=== PATIENT | female | born 1950 | race Caucasian/White ===

== ENCOUNTER 2024-11-30 18:55 | Emergency (ER) | payer OTHER, SELFPAY ==
--- OUTSIDE RECORDS SUMMARY | 2001-08-18 03:45 | XMS_ITS | Continuity of Care Document ---
Author Organization Formerly [facility] Address [address] [place] [address] Phone Care Team Providers Care Ritual Circumciser Name Role Phone Marvin Dong Unavailable Unavailable Advance Directives Directive Yes / No Effective Date File Name No Information Encounters Encounter Description Practice Location Reason(s) For Visit Diagnoses Date Provider Providers Copied on Encounter [facility], [address], [place], [place], [id number], [place] [phone] [facility] No Information 2 Jeromesy Edward. [address] , [address], [place], [address], [place]. tel:[phone] Family History Family Member Type Diagnosis Age At Onset No Information Payers Payer name Insurance type Covered republican ID Authoriza tion(s) No Information Social History Type Description Quantity Date Captured Comments Sex Female Smoking Status No Information Chief Complaint And Reason For Visit No Information Reason For Referral Reason For Referral No Information History Of Present Illness Encounter Date Complaint History Of Prese nt Illness No Information Functional Status Date Functional Assessmen t No Information Instructions Date Instruction Additional Infor mation No Information Assessments Type Assessment Date No Information Patient Care Teams Name Effective Dates (start - stop) Status Members No Information
--- OUTSIDE RECORDS SUMMARY | 2001-08-18 03:45 | XMS_ITS | Continuity of Care Document ---
Author Organization [facility] Address [address] [place] [address] Phone Care Team Providers Care School Speech Therapist Name Role Phone Marvin Dong Unavailable Unavailable Advance Directives Directive Yes / No Effective Date File Name No Information Encounters Encounter Description Practice Location Reason(s) For Visit Diagnoses Date Provider Providers Copied on Encounter [facility], [address], [place], [place], [id number], [place] tel:[phone] [facility] No Information 2 Jeromesy Edward. [address] , [address], [place], [address], [place]. tel:[phone] Family History Family Member Type Diagnosis Age At Onset No Information Payers Payer name Insurance type Covered democrat ID Authoriza tion(s) No Information Social History [...]
--- NOTE | ~2024-11-30 | XR_ITS ---
EXAMINATION: XR chest 1V DATE: 11/30/2024 20:30 INDICATION: Syncope TECHNIQUE: frontal view of the chest was obtained. COMPARISON: None FINDINGS: The lungs are clear with no focal airspace opacities, pulmonary edema, pleural effusion or pneumothorax. The cardiomediastinal silhouette is normal. Moderate thoracic spondylosis with bridging osteophytes at multiple levels consistent with diffuse idiopathic skeletal hyperostosis (DISH). IMPRESSION: 1. No acute cardiopulmonary disease. Reviewed, dictated and finalized at location A.
--- NOTE | ~2024-11-30 | CT_ITS ---
EXAMINATION: CT brain wo con DATE: 11/30/2024 20:26 INDICATION: Syncope. Headache. TECHNIQUE: Computed tomography (CT) of the head was performed without intravenous contrast. Sagittal and coronal reconstructions were performed. The mA was adjusted according to patient size. Iterative reconstruction technique was employed. The dose-length product was 605.33 mGy-cm. COMPARISON: None FINDINGS: No acute intracranial hemorrhage, acute infarction or abnormal extra axial fluid collection. A couple small old lacunar infarcts at the right basal ganglia. There is mild scattered white matter hypoattenuation consistent with chronic small vessel ischemic disease. Symmetric prominence of the sulci and subarachnoid spaces overlying the convexities consistent with mild age- appropriate diffuse cerebral volume loss. Ventricles are normal and symmetric. No mass/mass effect. There are couple surgical clips in the periventricular right temporal scalp. The orbits, paranasal sinuses and mastoid air cells are normal. Intracranial calcified cerebral atherosclerosis is noted. IMPRESSION: 1. A couple old lacunar infarcts at the right basal ganglia. No acute intracranial process. Reviewed, dictated and finalized at location A. IMPRESSION: 1. A couple old lacunar infarcts at the right basal ganglia. No acute intracran ial process.
[2024-11-30 18:57] VITALS: BP 152/76; PULSE 93; RESP 16; TEMP 36.6; O2SAT 97
--- OUTSIDE RECORDS SUMMARY | 2024-11-30 18:58 | XMS_ITS | Clinical Summary ---
Author Organization [facility] Address [address] [place] [id number] Care Team Providers Care Sand Cutter Operator Name Role Phone Unavailable Primary Care Provider Unavailabl e Social History Tobacco Use Types Packs/Day Years Used Date Smoking Tobacco: Never Assessed Comments Unknown Sex and Gender Information Value Date Recorded Sex Assigned at Not on file Legal Sex Female 7:28 PM CDT Gender Identity Not on file Sexual Orientation Not on file Plan of Treatment Health Maintenance Due Date Last Done Comments Colorectal Cancer Screening Colonoscopy (10 Years) 1950 Hepatitis C 1969 DTaP, Tdap and Td Vaccines ( 1 - Tdap) 1970 Mammogram Screening 1991 Pneumococcal Vaccine: 50+ Ye ars (1 of 1 - PCV) 2001 Zoster Vaccines (1 of 2) 2001 Dexa Scan (General) 2016 COVID-19 Vaccine ( - 2023-2 5 season) 2023 RSV Immunization or 60+ Years (1 - 1-dose 75+ series) 2026 Meningococcal B Vaccine Aged Out No l onger eligible based on patient's age to complete this topic Meningococcal Vaccine Aged Out No carolynn bess eligible based on patient's age to complete this topic RSV Immunizations Under 20 Months Aged Out No longer eligible based on patient's age to complete this topic
--- OUTSIDE RECORDS SUMMARY | 2024-11-30 18:58 | XMS_ITS | Clinical Summary ---
Author Organization [facility] Address [address] [place] [address] Phone Care Team Providers Care Hall Manager Name Role Phone Alisa Jensen BASEBALL GLOVE STUFFER Unavailable [phone] Lis Garcia MD Unavailable [phone] Italia Pierce MD Primary Care Provide r Yon Herrera DO Unavailable [phone] Allergies Active Allergy Reactions Criticality Noted Date Comments Sulfa (Sulfonamide Antibiotics) Other (See comments) Low Unsure of reaction- Sulfamethoxazole Other (See comments) Low Unsure of reaction- Sulfanilamide Other (See comments) Low Unsure of reaction- Medications fluticasone (FLONASE) 50 mcg/actuation nasal sprayIndications: please dispense 90 day supply Administer 2 sprays into each nostril daily. 48 g 017 Active fluticasone propion-salmetero L (ADVAIR DISKUS) 250-50 mcg/dose diskus inhaler Inhale 1 puff 2 (two) times a day 020 Active Spiriva Respimat 1.25 mcg/actuation inhaler Inhale 2 puffs nightly 021 Active ivermectin 1 % creamIndications: Rosacea Apply 1 Application topically 2 (two) times a day 45 g 024 Active levothyroxine (SYNTHROID) 75 mcg tabletIndications :Acquired hypothyroidism Take 1 tablet (75 mcg total) by mouth daily 90 tablet 3 024 Active vitamin E 400 unit capsule Take 1.125 capsules (450 Units total) by mouth daily Active vitamin B complex capsule Take 1 capsule by mouth daily Active biotin 10,000 mcg capsule Take 1 capsule (10,000 mcg total) by mouth daily Active UNABLE TO FIND Take 1 each by mouth daily Med Name: immune Health supplements- daily Active calcium carbonate (OS-CHIKI) 1,250 mg (500 mg elemental) tablet Take 1 tablet (1,250 mg total) by mouth daily with breakfast Active estradioL (ESTRACE) 0.01 % (0.1 mg/gram) vaginal cream Apply pea size amount as directed by physician nightly to vagina on Thursday// Thursday 42.5 g 1 025 2024 Active losartan (COZAAR) 25 mg tabletIndications :Primary hypertension Take 1 tablet (25 mg total) by mouth daily 90 tablet 3 025 2025 Active topiramate (TOPAMAX) 50 mg tabletIndications :Chronic migraine without aura without status migrainosus, not intractable Take half tablet (25 mg) po twice a day for one week, then one tablet po twice a day 60 tablet 3 Active rizatriptan MEDICAL BILLING COORDINATOR (MAXALT-MEDICAL BILLING COORDINATOR) 10 mg disintegrating tabletIndications :Migraine Take 1 tablet (10 mg total) by mouth every 2 (two) hours as needed for migraine May repeat in 2 hours if unresolved. Do not exceed 30 mg in 24 hours. 9 tablet 3 025 Active meclizine (ANTIVERT) 12.5 mg tablet TAKE 1 TABLET BY MOUTH THREE TIMES DAILY NEEDED FOR DIZZINESS 90 tablet 025 Active meclizine (ANTIVERT) 12.5 mg tablet Take 1 tablet (12.5 mg total) by mouth 3 (three) times a day as needed for dizziness 90 tablet 025 2024 Discontinued Active Problems Problem Noted Date Diagnosed Date Vulvar itching 07/25/2024 Assessment & Plan (07/25/2024 3:34 PM CDT): Unchanged Can use the estrogen cream prn. To call if it persist. Deviated septum 06/21/2024 Assessment & Plan (06/21/2024 1:10 PM CDT): Nasal septum spur seen on ct scan which could be contributing to her headaches Seen on ct scan Will refer to ENT Dizziness 06/21/2024 Assessment & Plan (07/20/2024 4:02 PM CDT): Possibly related to migraines ddx elevated blood pressure Ct scan did not show any concerning mass Declines referral to physical therapy sent meclizine last visit Has an appt with ENT and neurology coming up F/u prn Assessment & Plan (06/21/2024 1:09 PM CDT): Possibly related to migraines ddx elevated blood pressure Ct scan did not show any concerning mass Will send meclizine to help with symptoms Recommend journal to keep track F/u in 1 month for monitoring and go over in detail Temporal arteritis 05/04/2024 Assessment & Plan (08/12/2024 11:47 AM CDT): Status post temporal artery biopsy overall results from the biopsy were negative. Likely had a little stitch abscess which is resolving. Can follow up with me as needed. Assessment & Plan (07/28/2024 2:24 PM CDT): Mild drainage to her temporal artery biopsy site, I would suspect this has been healed as this was 2-3 months ago, maybe a small stitch abscess. I have recommended daily antibiotic ointment a repeat evaluation in 1-2 weeks. Assessment & Plan (05/05/2024 7:12 AM THREAD CUTTER): Right-sided headaches and vision changes with an elevated CRP. Started on steroids by her PCP. Risks benefits alternatives to right temporal artery biopsy were discussed, she wished proceed. Migraine 04/26/2024 Assessment & Plan (04/26/2024 4:42 PM THREAD CUTTER): Ocular migraine with new changes Will get ct of the head stat and hold but low suspicion for stroke or mass Referral to neurology Declines triptans Will continue tylenol which helps Esr crp tsh and cmp ordered Low suspicion for temporal arthritis F/u at next appt Encounter for wellness examination 12/17/2023 Assessment & Plan (12/18/2023 11:29 AM CDT): Ordered CBC, cmp, lipid, hgb a1c, hep b screening TSH w/ reflex to t4 Colonoscopy declines, risks and benefits discussed. She understands the risk of not getting this done Mammo declines, risks and benefits discussed she understands the risk of not getting this done Flu vaccine declines F/u in 1 year for annual Rosacea 11/24/2023 Assessment & Plan (12/18/2023 11:28 AM CDT): Stable Cont following with dermatology Will Do a 1 time refill on the cream Assessment & Plan (11/25/2023 5:19 PM CDT): -chronic, stable -previously followed with Dermatology -currently uses ivermectin 1% cream topically b.i.d. as needed -patient reports she was in need of a refill of her cream -refill of medication provided -continue current treatment plan ASCUS of cervix with negative high risk HPV 06/05 Overview (07/02/2023): 06/2021-ascus Pap with negative high-risk HPV 07/01/2022-ascus Pap high-risk HPV was not tested. Assessment & Plan (06/29/2023 9:29 AM CDT): Pap repeated today Atopic dermatitis 05/14/2023 Assessment & Plan (05/14/2023 10:33 AM THREAD CUTTER): Rxs given, if no improvement, simon ov for further eval/mgmt. Go to nearest ER for any worrisome S/Sxs. Acute pain of right shoulder 03/17/2023 Assessment & Plan (03/17/2023 9:07 PM THREAD CUTTER): Xrays ordered, trial of oral steroids. Continue heat/ice 20 mins/hr. Consider PT. May take OTC NSAIDs and/or Tylenol. Notify our office of no improvement. Mammogram declined 03/17/2023 Colonoscopy refused 03/17/2023 Chronic fatigue 06/10/2022 Assessment & Plan (07/21/2024 11:12 AM CDT): Likely chronic fatigue syndrome The patient said that she was tested by [facility] for sleep apnea and no CPAP machine was recommended. Work up this far unremarkable and even saw endo in the past for this Ordered B12 vitamin d iron panel urinalysis Encourage exercise and diet F/u pending above results Assessment & Plan (06/10/2022 1:29 PM THREAD CUTTER): The patient said that she was tested by [facility] for sleep apnea and no CPAP machine was recommended. I recommended to start low-dose of phentermine to see that helps with her energy I asked her to call in 2 months to see if that is helping any Well woman exam 03/10/2022 Overview (07/25/2024): Lab: Pap:vag pap 06/29/2023, ASCUS Labs with PCP Marcel:last 2021 BIRADS:2- benign, upcoming appt. In August 2024 Colonoscopy:last 2010- she states she is done BMD:last 12/24/2022- low bone mass -1.1 will plan to repeat in 2026 Assessment & Plan (07/25/2024 3:32 PM CDT): Pt states paps have always been abnl She told me in 2021 that her last pap was in 2019 and was abnl 2021- ascus negative HRHPV 2023- pap only was ascus She would like to hold on pap this year. Assessment & Plan (06/29/2023 9:47 AM CDT): Pap done. RTO 12m. I will send the results to the portal. If she has not heard in a week, to call the office. Assessment & Plan (03/10/2022 3:59 PM THREAD CUTTER): Pap done secondary to her h/o the last one being abnl. To repeat until we have three normals Results will go to portal in about a week Osteopenia 10/18/2020 Class 3 severe obesity due t o excess calories with serious comorbidity and body mass index (BMI) of 40.0 to 44.9 in adult 12/31/2017 Assessment & Plan (07/21/2024 11:13 AM CDT): She was counseled on the importance of maintaining a healthy weight and the risks of obesity. Weight loss recommended. Encourage 150min/ week of exercise Encourage 1500 calories in a day for weight loss Assessment & Plan (12/18/2023 11:28 AM CDT): She was counseled on the importance of maintaining a healthy weight and the risks of obesity. Weight loss recommended. Encourage 150min/ week of exercise Encourage 1500 calories in a day for weight loss Assessment & Plan (11/24/2023 11:29 AM CDT): Wt Readings from Last 3 Encounters: 11/24/23 76.7 kg (169 lb) 10/22/23 75.4 kg (166 lb 4.8 oz) 10/17/23 75.3 kg (166 lb) Body mass index is 36.56 kg/m . -Stable, not at goal of <30 bmi -Discussed recommendations for exercise at least 30 minutes moderate to vigorous exercise as tolerated most days of the week. (minimum 150 minutes weekly) -Discussed importance of well-balanced diet. Assessment & Plan (10/23/2023 6:36 AM CDT): Wt Readings from Last 3 Encounters: 10/22/23 75.4 kg (166 lb 4.8 oz) 10/17/23 75.3 kg (166 lb) 06/29/23 76.1 kg (167 lb 12.8 oz) Body mass index is 35.99 kg/m . -Stable, not at goal of <30 bmi -Discussed recommendations for exercise at least 30 minutes moderate to vigorous exercise as tolerated most days of the week. (minimum 150 minutes weekly) -Discussed importance of well-balanced diet. Assessment & Plan (06/09/2023 2:14 PM THREAD CUTTER): Weight reduction, daily exercise and dietary modifications recommended., as obesity can complicate their hypertension. Assessment & Plan (05/14/2023 10:31 AM THREAD CUTTER): Weight reduction, daily exercise and dietary modifications recommended., as obesity can complicate their hypertension Assessment & Plan (12/09/2022 11:04 AM CDT): Weight reduction, daily exercise and dietary modifications recommended., as obesity can complicate their hypertension Extrinsic asthma 10/18/2013 Overview (07/10/2016): EXTRINSIC ASTHMA NOS Assessment & Plan (12/18/2023 11:10 AM CDT): Currently asymptomatic, at baseline, continue current medications, Spiriva, albuterol, Advair. Patient currently being followed by pulmonology. Assessment & Plan (06/09/2023 2:14 PM THREAD CUTTER): Currently asymptomatic, at baseline, continue current medications, Spiriva, albuterol, Advair. Patient currently being followed by pulmonology. Assessment & Plan (12/09/2022 11:04 AM CDT): Asymptomatic. Stable. Continue current prescription medications, albuterol, Advair, Spiriva. Managed by pulmonology. Primary hypertension 08/20/2013 Overview (06/09/2023): Assessment & Plan (07/21/2024 11:10 AM CDT): Bp in the office today BP Readings from Last 1 Encounters: 07/20/24 128/74 cont losartan 25mg daily Recommend DASH diet, heart-healthy lifestyle, exercise. Discussed the risks of hypertension. Assessment & Plan (06/21/2024 1:10 PM CDT): Bp in the office today BP Readings from Last 1 Encounters: 06/21/24 130/66 Start losartan 25mg daily Recommend DASH diet, heart-healthy lifestyle, exercise. Discussed the risks of hypertension. F/u in 1 month Assessment & Plan (12/18/2023 11:08 AM CDT): Bp in the office today BP Readings from Last 1 Encounters: 12/18/23 138/68 Continue current regimen of Recommend DASH diet, heart-healthy lifestyle, exercise. Discussed the risks of hypertension. F/u in 6 months Assessment & Plan (06/09/2023 2:13 PM THREAD CUTTER): Clinically resolved. BP goal < 140/90. Low sodium diet recommended. Assessment & Plan (05/14/2023 10:32 AM THREAD CUTTER): BP near goal of < 140/90, low sodium diet recommended. Assessment & Plan (12/09/2022 11:04 AM CDT): Blood pressure is at goal of less than 140/90, patient uses dietary modifications to help control her blood pressure. Acquired hypothyroidism 07/22/2012 Overview (07/09/2016): Thyroid disease Assessment & Plan (12/17/2023 8:51 PM CDT): Lab Results Component Value Date TSH 0.14 (L) 11/20/2023 Follow up with endocrinology for management Assessment & Plan (11/25/2023 5:18 PM CDT): Lab Results Component Value Date TSH 0.14 (L) 11/20/2023 -chronic, not at goal -patient currently takes Synthroid 88 mcg daily -follows with endocrinology -at last office visit patient's Synthroid was decreased from 100 mcg down to 88 mcg based on recent thyroid testing during emergency department visit -most recent TSH performed, abnormal results --> minimal improvement in TSH, T4 within normal range -encouraged patient to reach out to [facility] parent for a follow up appointment -decrease Synthroid to 75 mcg daily -continue current treatment plan Assessment & Plan (10/23/2023 6:39 AM CDT): Lab Results Component Value Date TSH 0.14 (L) 10/17/2023 -chronic, not at goal -patient currently takes Synthroid 100 mcg daily -follows with endocrinology -most recent TSH performed with ER visit, abnormal results -encouraged patient to reach out to cottage parent about potential change in medication dosage -continue current treatment plan Assessment & Plan (06/09/2023 2:13 PM THREAD CUTTER): Asymptomatic. Stable. Continue current prescription medications, levothyroxine. Hypothyroidism followed by endocrinology. Assessment & Plan (05/28/2023 11:44 AM THREAD CUTTER): Chronic, well controlled Continue Synthroid, 100 mcg daily Assessment & Plan (12/09/2022 11:03 AM CDT): Asymptomatic. Stable. Continue current prescription medications, levothyroxine. Patient followed by endocrinology. Assessment & Plan (12/02/2022 2:57 PM CDT): Update TFTs Continue Synthroid, Will adjust dose of indicated Resolved Problems Problem Noted Date Diagnosed Date Resolved Date Nipple dermatitis 03/10/2022 11/24/2023 Assessment & Plan (06/29/2023 9:29 AM CDT): resolved Assessment & Plan (03/10/2022 4:00 PM THREAD CUTTER): She will treat with the aveno. If not better in a month, to come back. Eye exam abnormal 05/08/2021 12/09/2022 Gastroesophageal reflux disease 08/20/2013 06/09/2023 Overview (06/09/2023): Resolved Assessment & Plan (12/09/2022 11:03 AM CDT): Asymptomatic, patient made dietary changes to help with symptoms. Hypothyroidism 08/20/2013 12/09/2022 Overview (07/10/2016): HYPOTHYROIDISM NOS Assessment & Plan (06/10/2022 1:28 PM THREAD CUTTER): I explained to the patient that probably her fatigue is not related to her hypothyroidism, Since the Cytomel has not made any difference recommended to stop it and to go back to 100 mcg of Synthroid daily Hypertension 07/22/2012 05/08/2021 Overview (07/10/2016): Hypertension Asthma 07/22/2012 12/09/2022 Overview (07/10/2016): Asthma Encounters Date Type Department Care Team Description 11/03/2024 1:00 PM CDT Office Visit 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); Disorder of breast, unspecified 10/28/[address] [id number] Murphy RN 10/26/2024 Results Follow-Up [address] [place] [address] Lis Garcia MD Surgical pathology 10/24/2024 8:23 AM CDT - 10/24/2024 11:59 PM CDT Hospital Encounter [facility] [address] [place] [address] 1, Amh Rad Rn Rad, Amh Breast Abnormal mammogram Discharge Disposition: Discharge to home or self care 10/21/[address] [place] [address] Lis Garcia MD auth for breast biopsy 10/20/[address] [address]Latosha Murphy RN 10/05/[address] [address]Latosha Murphy RN 09/07/[address] [address]Latosha Murphy RN 09/01/2024 7:50 AM CDT - 09/01/2024 11:59 PM CDT Hospital Encounter [facility] [address] [place] [address] Abnormal mammogram Discharge Disposition: Discharge to home or self care 09/01/2024 7:50 AM CDT - 09/01/2024 11:59 PM CDT Hospital Encounter [facility] [address] [place] [address] Abnormal mammogram Discharge Disposition: Discharge to home or self care 09/01/2024 Results Follow-Up [facility] [place] [address] [place] [phone] Italia Pierce MD Diagnostic Mammogram Left W Misha from Last 3 Months Immunizations Immunization Administration Dates Next Due Influenza, Quad, Adjuvantate d, Intramuscular 01/13/2023,01/29/2022,01/11/2021,12/29 Influenza, Quadrivalent, Spl it, Intramuscular 02/08/2016,01/08/2015 Influenza, Quadrivalent, Spl it, Preservative Free, Intramuscular 12/30/2019 Influenza, Split 02/18/2013,02/21/2010, 9 Influenza, Trivalent, Adjuva nted, Intramuscular 03/07/2019 Influenza, Trivalent, High D ose, Split, Preservative Free, Intramuscular 02/08/2024,12/31/2017,12/12/2016,03/22,03/22/2014 Influenza, Trivalent, IM (MDV) 02/18/2013,2006 Influenza, Unspecified 01/05/2023,2021,01/04/2021,12/11 Pneumococcal Conjugate PCV 13 12/12/2016 Pneumococcal Conjugate, Unspecified 12/11/2016 Pneumococcal Polysaccharide PPV23 07/01/2018, Td, adsorbed 10/15/2007,05/07/2006 ZOSTER Recombinant 05/27/2019,01/26/2019 Surgical History Surgery Date Site/Laterality Comments OTHER SURGICAL HISTORY T&A SECTION c section [id number] TUBAL LIGATION 04/06/1975 - 04/05/1976 Bilateral tubal ligation OTHER SURGICAL HISTORY 04/06/2007 - 04/05/2008 GERD: Esoghageal stricture OTHER SURGICAL HISTORY 04/06/1991 - 04/05/1992 Cspine surgery- bulging disc NECK SURGERY neck surgery OTHER SURGICAL HISTORY Esophagus stretched x 3 KNEE ARTHROSCOPY 07/21/2017 Right Arthroscopy right Knee Partial Medial Menisectomy CATARACT EXTRACTION Bilateral COLONOSCOPY TONSILLECTOMY at age 6 BIOPSY - TEMPORAL ARTERY 05/10/2024 Head/Right Procedure: RIGHT TEMPORAL ARTERY BIOPSY; Surgeon: Kd Stanton MD; Location: [facility]; Service: Vascular; Laterality: Right; SECTION 1969 and 1974 BREAST BIOPSY 10/24/2024 Left Medical History Medical History Date Comments 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 Gastroesophageal reflux disease GERD Hypertension patient denies- not on medication Thyroid disease Meniscal injury H/O cardiac arrest d/t asthma at tacks X's 2- at age 16 and 17 Hypothyroidism Arthritis Cataract Allergic rhinitis Rosacea Headache Stroke (HCC) eye stroke- 2020 - right eye- vision not impacted Wears reading eyeglasses Temporal arteritis (HCC) Family History Medical History Relation Name Comments Alcohol abuse Brother 1 Torsten Other Brother 1 Torsten Alive and well; homicide Brother 1 Torsten Depression Brother 2 Jayme Mental illness Brother 2 Jayme fatty liver Brother 2 Jayme in senior living Alcohol abuse Father Jung Arthritis Father Jung Stroke Father Jung Stroke; /Stroke ; Cause of : Stroke Alcohol abuse Mother Vibha Coronary artery disease Mother Vibha Akshat nary artery disease; Cause of : Coronary artery disease Heart attack Mother Vibha Heart disease Mother Vibha Heart disease; Hypertension Mother Vibha Hypertension; Alcohol abuse Sister 1 Randee Other Sister 1 Randee Alive and well; Alcohol abuse Sister 2 Damaris Hypertension Sister 2 Damaris Hypertension; Breast cancer Neg Hx Cancer Neg Hx no colon, breas t or consumer product advisor cancer no change cmt 07/25/24 Relation Name Status Comments Brother 1 Torsten Brother 2 Jayme Father Jung (Age 67) Mother Vibha (Age 67) Sister 1 Randee Sister 2 Damaris Social History Tobacco Use Types Packs/Day Years Used Date Smoking Tobacco: Never Passive Smoke Exposure: Never Smokeless Tobacco: Never Tobacco Cessation:Counseling Given: Not Answered Alcohol Use Standard Drinks/Week Comments Yes 7 (1 standard drink = 0.6 oz pur e alcohol) 1 glass wine daily Humiliation, Afraid, Rape, and Kick questionnair e Answer Date Recorded Within the last year, have y ou been afraid of your partner or ex-partner? No 07/25/2024 Within the last year, have y ou been humiliated or emotionally abused in other ways by your partner or ex-partner? No Within the last year, have y ou been kicked, hit, slapped, or otherwise physically hurt by your partner or ex-partner? No 07/25/2024 Within the last year, have y ou been raped or forced to have any kind of sexual activity by your partner or ex-partner? No 07/25/2024 AUDIT-C Answer Date Recorded Q1: How often do you have a drink containing alc ohol? Monthly or less 05/10/2024 Q2: How many drinks containi ng alcohol do you have on a typical day when you are drinking? 1 or 2 05/10/2024 Q3: How often do you have si x or more drinks on one occasion? Never 05/10/2024 PHQ-2 Answer Date Recorded PHQ-2 Total Score (If total score is 3 or more points, staff should administer the PHQ-9) 0 07/20/2024 Personal Safety Answer Date Recorded Have you ever been in or are you currently in a harmful physical or emotional relationship or is someone making you feel afraid or unsafe? Denies 05/10/2024 Comments No Sex and Gender Information Value Date Recorded Sex Assigned at Female 06/29/2018 9:49 AM CDT Legal Sex Female 2:17 PM THREAD CUTTER Gender Identity Female 07/25/2020 9:30 AM CDT Sexual Orientation Straight 06/29/2018 9: 49 AM CDT Occupation Industry Job Start Date Job End Date [employer] Retiring 06/2018 Not on file Not on file Not on file Obstetrics History Para Term AB IAB SAB Ectopic Multiple Livin g Live Births 2 2 2 2 2 Date Outcome GA Total Labor Labor/2nd/3rd Weight Sex Type Anes PTL Vannesa A1 A5 Name Clin Term F CS-Un spec None Living Complications:None Term M CS-Un spec Epidura l Living Complications:None Last Filed Vital Signs Vital Sign Reading Time Taken Comments Blood Pressure 151/90 11/03/2024 12:54 PM CDT Pulse 98 11/03/2024 12:54 PM CDT Temperature 36.3 C (97.3 F) 10/24/2024 8:35 AM CDT Respiratory Rate 16 10/24/2024 8:35 AM CDT Oxygen Saturation 95% 11/03/2024 12:54 PM CDT Inhaled Oxygen Concentration - - Weight 74.4 kg (164 lb) 11/03/2024 12:54 PM CDT Height 139.7 cm (4' 7) 11/03/2024 12:54 PM CDT Body Mass Index 38.12 11/03/2024 12:54 PM CDT Plan of Treatment Health Maintenance Due Date Last Done Comments Colon Cancer Screening-Colonoscopy 12/31/2020 12/31/2010 Influenza Vaccine (#1) 2024 , 01/13/2023, 01/05/2023, Additional history exists Well Visit 65+ 12/17/2024 12/18/2023, 08/2022, 10/18/2020, Additional history exists Osteoporosis Screening-Bone Density Scan 12/24/2024 12/24/2022, 11/14/2020, 01/15/2017 DTaP/Tdap/Td Vaccine (1 - Tdap) 06/21/2025 10/15/2007, 05/07/2006 Postponed from 10/16/2007 (Insurance / Financial) Depression Screening 07/20/2025 07/20/2024, 06/21/2024, 04/26/2024, Additional history exists Fall Risk Assessment 07/20/2025 07/20/2024, 06/21/2024, 05/04/2024, Additional history exists Breast Cancer Screening-Mammogram 08/20/2025 08/20/2024, 02/07/2022, 12/07/2020, Additional history exists Colon Cancer Screening-CT Colonography Discontinued 12/31/2010 Colon Cancer Screening-DNA Stool Discontinued 12/31/2010 Colon Cancer Screening-FIT Discontinued 12/31/2010 Colon Cancer Screening-Sigmoidoscopy Discontinued 12/31/2010 Hepatitis C Screening Completed 01/28/2018 Pneumococcal vaccine 65+ Completed 019, 06/30/2018, 12/12/2016, Additional history exists Zoster Vaccine Completed 05/27/2019, 01/26/2019 Hepatitis B Screening Completed 12/21/2023 Medical Devices Implanted Type Area Resource Coordinator Device Identifier Shelf Expiration Date Model / Serial / Lot [employer] Marker Tissue Bowtie Shape Titanium Collagen Mammomark 10ga [id number] - [id number] - [id number] Implanted:Qty : 1 on 10/24/2024 by David Purcell MD at [facility] Breast Left: Breast [employer] [id number] 10/17/2025 [id number] / [id number] / [id number] D Description:Stereotactic lef t breast biopsy. 2-3:00 mid to posterior depth. Cores x6 Microcalcs in cassettes 3, 4, 5, & 6. Lens Bilateral: Eye Procedures Procedure Name Priority Date/Time Associated Diagnosis Comments STEREOTACTIC BREAST BIOPSY LEFT Schedule Routine, Read Routine (OP Routine) 10/24/2024 9:49 AM CDT Abnormal mammogram SURGICAL PATHOLOGY Routine 10/24/2024 9: 32 AM CDT Abnormal mammogram US BREAST LEFT LIMITED Schedule Routine, Read Routine (OP Routine) 09/01/2024 8:51 AM CDT Abnormal mammogram DIAGNOSTIC MAMMOGRAM LEFT W MISHA Schedule Routine, Read Routine (OP Routine) 09/01/2024 8:15 AM CDT Abnormal mammogram SCREENING MAMMOGRAM BILATERAL W MISHA Schedule Routine, Read Routine (OP Routine) 08/20/2024 9:21 AM CDT Encounter for screening mammogram for malignant neoplasm of breast DEXA AXIAL SKELETON BONE DENSITY 1 OR MORE SITES Schedule Routine, Read Routine (OP Routine) 12/24/2022 10:17 AM CDT Postmenopausal Screening for osteoporosis HEPATITIS C ANTIBODY Routine 01/28/2018 8:53 AM CDT COLONOSCOPY Routine 12/31/2010 from Last 3 Months or Most Recently Relevant to Health Maintenance Results * Stereotactic Breast Biopsy Left (10/24/2024 9:49 AM CDT) Anatomical Region Laterality Modality Breast Left Mammography 10/24/2024 9:55 AM CDT Addenda Addendum by David Purcell MD on 10/28/2024 5:16 PM CDT Pathology returns as: 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 Results are concordant with the imaging findings. Recommend surgical consultation for excisional biopsy. Results and recommendations were communicated to Dr. Garcia by ROCIO simms on 10/28/2024 via secure message imaging in the medical record Electronically signed by: David Purcell M.D. Impressions 10/24/2024 9:55 AM CDT Successful vacuum-assisted core needle biopsy of the LEFT breast. Pathology is pending. ASSESSMENT: Post Procedure Mammograms for Marker Placement Electronically signed by: David Purcell M.D. Narrative 10/24/2024 9:55 AM CDT EXAMINATION: LEFT STEREOTACTIC BREAST VACUUM-ASSISTED CORE BIOPSY UTILIZING TOMOSYNTHESIS AND STEREOTACTIC GUIDANCE, PLACEMENT OF A BIOPSY SITE TISSUE MARKER CLIP, AND LEFT FULL FIELD DIGITAL MAMMOGRAM WITH DIGITAL BREAST TOMOSYNTHESIS HISTORY: Suspicious left breast calcifications. Image guided core needle biopsy is requested to evaluate for malignancy. COMPARISON: 09/01/2024, 08/20/2024, 02/07/2022. BREAST PARENCHYMAL COMPOSITION: The breasts are heterogeneously dense, which may obscure small masses. PROCEDURE AND FINDINGS: The risks and potential benefits of the procedures were discussed with the patient and written informed consent was obtained. After a time-out procedure, the patient was placed in the prone position on the biopsy unit. The area of interest was localized and targeted utilizing digital imaging with tomosynthesis and stereotaxis. After sterile preparation of the skin, 1% lidocaine was utilized for local anesthesia. A small skin incision was made with a #11 scalpel blade and a 9 gauge Brevera vacuum-assisted biopsy needle was advanced to the area of interest from a lateral approach utilizing stereotactic guidance. A total of 6 tissue cores were then obtained; these were submitted to surgical pathology in formalin for histologic analysis. The specimen radiograph demonstrates that the calcifications of interest are included within the tissue cores. Bowtie tissue marker clip was placed at the biopsy site. The needle was removed, hemostasis was achieved, and a sterile bandage was applied. There was no evidence of significant immediate complication. The patient was given verbal as well as written post procedural instructions prior to release from the department. A two-view LEFT digital mammogram, including digital breast tomosynthesis, post procedure demonstrates that the tissue marker clip is in the expected position. The attending radiologist, Dr. David Purcell M.D., was present throughout the entire procedure. us Lis Garcia MD IMG MAMMO PROCEDURE S Edited Result - Final * Surgical pathology (10/24/2024 9:32 AM CDT) Tissue (Breast biopsy, needle core) 10/24/2024 9:22 AM CDT Comment:Stereotactic left br east biopsy. 2-3:00 mid to posterior depth. Cores x6 Microcalcs in cassettes 3, 4, 5, & 6. Narrative PATHOLOGY [facility] ([place]) - 10/26/2024 4:42 PM CDT EPIC results best viewed via link to PDF [facility] Department of Pathology [address] [place] [address] Note to Patients: This report may contain a detailed description of human tissue sent by a health care provider to the laboratory for pathologic evaluation. The content of this report is essential for diagnosis and may provide important critical findings. This information may be unfamiliar to patients to review without a medical professional present. It is advised that the patient review this report in the presence of a health care provider who can answer questions and explain the details. Final Report Patient Name: NORY DOVE Address: [address] , [place] [address] Gender: F : 1950 (Age: 74) Service: Location: N : [id number] Hospital #: [id number] Patient Type: [facility] ANCILLARY Taken: 10/24/2024 Received: 10/24/2024 Accessioned: 10/24/2024 Reported: 10/26/2024 Physician(s):Lis Garcia M.D. 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 Sherlyn Carmichael M.D. Report Electronically Reviewed and Signed Out By Sherlyn Carmichael M.D. 10/26/2024 16:42:32 Specimen(s) Received: A: Stereotactic left breast biopsy, 2-3:00 mid to posterior depth, cores x 6, microcalcs in slots 3,4 5 and 6 Microscopic Description: Microscopic examination of the left breast at 2-3 o'clock, mid to posterior, examined at multiple levels and reviewed in conjunction with the radiographic imaging show cores of breast parenchyma with stromal fibrosis and multiple small areas morphologically compatible with atypical ductal hyperplasia, with associated microcalcifications. Immunohistochemical stains are performed (with appropriate controls) on a off premise service representative block. The myoepithelial marker SMM-HWC strongly positive, while the CK5/6 is negative in the ER show strong nuclear staining. The immunoprofile is consistent with atypical ductal hyperplasia. Recommend follow up imaging as clinically indicated. Intradepartmental consultation: Dr. Restrepo has reviewed the slides and concurs. Clinical History: Abnormal mammogram. Stereotactic left breast biopsy. Gross Description: The specimen is submitted in a single formalin filled container labeled NORY DOVE and stereotactic left breast biopsy,2 to 3 o'clock mid to posterior. It is a divided stereotactic device with 1 core of fibrofatty tissue in 6 compartments. Compartment 1 holds 1 fibrofatty core, 1.8 cm in length, embedded as A1. Compartment 2 holds 1 fibrofatty core, 1.8 cm in length, embedded as A2. Compartment 3 holds 1 fibrofatty core, 2.8 cm in length, embedded as A3. Compartment 4 holds 1 fibrofatty core, 1.8 cm in length, embedded as A4. Compartment 5 holds 1 fibrofatty core, 1.6 cm in length, embedded as A5. Compartment 6 holds 1 fibrofatty core, 2.1 cm in length, embedded as A6. Removed from patient on 10/24/2024 at 922 and placed in formalin at 930, 10/24/2024, removed from formalin 10/25/2024. Formalin fixation times are in compliance with ASCO/CAP guidelines. Perico Paredes/Sherlyn Carmichael M.D. REPORT IMAGES AND SCANNED DOCUMENTS, IF INCLUDED, ONLY VIEWABLE IN PDF VERSION OF REPORT The performance characteristics of some immunohistochemical stains, fluorescence in-situ hybridization tests and immunophenotyping by flow cytometry cited in this report (if any) were determined by the Surgical Pathology Department at [facility] as part of an ongoing quality measurement specialist program and in compliance with federally mandated regulations drawn from the Clinical Laboratory Improvement Act of 1988 (CLIA '88). Some of these tests rely on the use of analyte specific reagents and are subject to specific labeling requirements by the US Food and Drug Administration. Such diagnostic tests may only be performed in a facility that is certified by the Department of Health and Human Services as a high complexity laboratory under CLIA '88. The FDA has determined that such clearance or approval is not necessary. This test is used for clinical purposes. It should not be regarded as investigational or for research. Nevertheless, federal rules concerning the medical use of analyte specific reagents require that the following disclaimer be attached to the report: This test was developed and its performance characteristics determined by the Surgical Pathology Department [facility]. It has not been cleared or approved by the U. S. Food and Drug Administration. Note for decalcified specimens: This assay has not been validated on decalcified tissues. Results should be interpreted with caution given the possibility of false negativity on decalcified specimens Lis Garcia MD LAB PATHOLOGY ORDER AMAURY Final Result PATHOLOGY [facility] ([place]) [address] [place] [address] * US Breast Left Limited (09/01/2024 8:51 AM CDT) Anatomical Region Laterality Modality Breast Left Ultrasound 09/01/2024 5:45 PM CDT Impressions 09/01/2024 5:45 PM CDT Suspicious calcifications in the lateral left breast for which stereotactic/tomographic guided core biopsy is recommended. OVERALL FINAL ASSESSMENT: BI-RADS 4B-moderately suspicious for malignancy. Tissue diagnosis is recommended. Electronically signed by: Gina Laureano M.D. Narrative 09/01/2024 5:45 PM CDT EXAMINATION: LEFT DIGITAL DIAGNOSTIC MAMMOGRAM AND DIGITAL BREAST TOMOSYNTHESIS; LEFT BREAST SONOGRAM HISTORY: Additional imaging COMPARISON: August 20 TECHNIQUE: Full field digital mammographic views of the left breast(s) were performed, including computer aided detection (CAD) and digital breast tomosynthesis (DBT). Directed ultrasound evaluation of the left breast(s) was performed. BREAST PARENCHYMAL COMPOSITION: The breasts are heterogeneously dense, which may obscure small masses. MAMMOGRAM FINDINGS: On the additional mammographic views, the finding(s) questioned on the screening study does/do not persist. This is thought to be secondary to compression artifact. Calcifications in question in the medial left breast appear coarse and are considered benign, but there are some very fine calcifications seen in the lateral left breast. They span a distance of approximately 10 mm, and they are located at 2-3 o'clock in the mid to posterior depth. There is density in the region as well, which could represent just some fibroglandular tissue. An associated mass cannot be excluded. There is no unexplained architectural distortion. There is no skin thickening seen. There are no mammographically abnormal lymph nodes seen in the axillae or elsewhere. ULTRASOUND FINDINGS: Sonography through the 2-3 o'clock left breast demonstrates no cystic or solid masses. us Italia Pierce MD IMG MAMMO PROCEDURES Final Result * (ABNORMAL) Diagnostic Mammogram Left W Misha (09/01/2024 8:15 AM CDT) Anatomical Region Laterality Modality Breast Left Mammography 09/01/2024 5:45 PM CDT Impressions 09/01/2024 5:45 PM CDT Suspicious calcifications in the lateral left breast for which stereotactic/tomographic guided core biopsy is recommended. OVERALL FINAL ASSESSMENT: BI-RADS 4B-moderately suspicious for malignancy. Tissue diagnosis is recommended. Electronically signed by: Gina Laureano M.D. Narrative 09/01/2024 5:45 PM CDT EXAMINATION: LEFT DIGITAL DIAGNOSTIC MAMMOGRAM AND DIGITAL BREAST TOMOSYNTHESIS; LEFT BREAST SONOGRAM HISTORY: Additional imaging COMPARISON: August 20 TECHNIQUE: Full field digital mammographic views of the left breast(s) were performed, including computer aided detection (CAD) and digital breast tomosynthesis (DBT). Directed ultrasound evaluation of the left breast(s) was performed. BREAST PARENCHYMAL COMPOSITION: The breasts are heterogeneously dense, which may obscure small masses. MAMMOGRAM FINDINGS: On the additional mammographic views, the finding(s) questioned on the screening study does/do not persist. This is thought to be secondary to compression artifact. Calcifications in question in the medial left breast appear coarse and are considered benign, but there are some very fine calcifications seen in the lateral left breast. They span a distance of approximately 10 mm, and they are located at 2-3 o'clock in the mid to posterior depth. There is density in the region as well, which could represent just some fibroglandular tissue. An associated mass cannot be excluded. There is no unexplained architectural distortion. There is no skin thickening seen. There are no mammographically abnormal lymph nodes seen in the axillae or elsewhere. ULTRASOUND FINDINGS: Sonography through the 2-3 o'clock left breast demonstrates no cystic or solid masses. us Italia Pierce MD IMG MAMMO PROCEDURES Final Result * (ABNORMAL) Screening Mammogram Bilateral W Misha (08/20/2024 9:21 AM CDT) Anatomical Region Laterality Modality Breast Bilateral Mammography Impressions 08/22/2024 8:23 AM CDT BI-RADS: 0-Incomplete. Additional evaluation is recommended. 1. Indeterminate left breast finding as above. Further evaluation with diagnostic left mammography and possible diagnostic left breast ultrasound is recommended. 2. No mammographic evidence of malignancy in the right breast. Routine screening mammography of the right breast is recommended in 1 year. The patient has been or will be contacted. Narrative 08/22/2024 8:23 AM CDT EXAMINATION: SCREENING MAMMOGRAM BILATERAL W MISHA ORDERING HEALTHCARE PROVIDER: SELF SCREENING MAMMOGRAM HISTORY: Routine screening mammography. COMPARISON: 02/07/2022, 12/07/2020, 12/29/2019, 11/29/2019, 07/07/2018, 01/23/2018, 11/01/2016 TECHNIQUE: CC and MLO views of the bilateral breasts were obtained with digital technique using breast tomosynthesis with C view. Computer aided detection was utilized. FINDINGS: DENSITY: The tissue of the bilateral breasts is heterogeneously dense, which may obscure small masses. BREASTS: There are vascular calcifications bilaterally. There are increasing calcifications at the 9 o'clock position of the right breast posteriorly. There is also an asymmetry in the subareolar left breast seen on the cc view only. There are no other suspicious masses, suspicious calcifications, or other suspicious findings in either breast. There has been no other suspicious interval change. 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 LEFT HIP: Total BMD is 1.015 g/cm2 T-score is 0.6 Femoral neck BMD is 0.728 g/cm2 T-score is -1.1 FRAX: 10 year risk for a major osteoporotic fracture is 8.5 %, 10 year risk for a hip fracture is 1.0 % IMPRESSION: Low Bone Mass. REFERENCE: Bone mineral density: Normal (T-score above or = -1.0) Low bone mass (T-score between -1.0 and -2.5) replaces the previously used term osteopenia Osteoporosis (T-score = or below -2.5) Medical evaluation for secondary causes of low bone mineral density may be appropriate. FRAX is a World Health Organization validated fracture risk assessment tool that calculates a person's 10 year probability of a major osteoporosis related fracture and hip fracture. According to the National Osteoporosis Foundation guidelines, postmenopausal women and men age 50 or older with low bone mass and a 10 year probability of a major osteoporosis related fracture = or greater than 20% or a 10 year probability of a hip fracture = or greater than 3% should be considered for treatment. For further information, including treatment recommendations, please refer to the 2019 ISCD Official Positions (http://www.iscd.org) and the NOF's Clinician's Guide to Prevention and Treatment of Osteoporosis (http://www.nof.org/professionals/clinical-guidelines) THIS IS AN ELECTRONICALLY VERIFIED FINAL REPORT 12/24/2022 8:00 PM - Electronically signed by Ibrahima Albert M.D. MF: ELIAN Report ID: [id number] Reading Location: [place] [address] Procedure Note Ibrahima Albert MD - 12/24/2022 EXAM DESCRIPTION: DEXA AXIAL SKELETON BONE DENSITY 1 OR MORE SITES REASON FOR STUDY: 72 y/o year old F with given history of: screening osteoporosis Osteoporosis screening Post menopausal Resource Coordinator/Model: [employer] SL (S/N [id number]) CLINICAL INFORMATION: Current height: 57 inches Maximum height: 57.5 inches Weight: 174 pounds Risk factors: Postmenopausal, asthma or emphysema COMPARISON: 01/15/2017, 11/14/2020 FINDINGS: AP LUMBAR SPINE L1-L4: Total BMD is 1.060 g/cm2 T-score is 0.1 Dissimilar scan types or analysis methods precludes assessment for calculating a significant change. LEFT HIP: Total BMD is 1.015 g/cm2 T-score is 0.6 Femoral neck BMD is 0.728 g/cm2 T-score is -1.1 FRAX: 10 year risk for a major osteoporotic fracture is 8.5 %, 10 year risk fora hip fracture is 1.0 % IMPRESSION: Low Bone Mass. REFERENCE: Bone mineral density: Normal (T-score above or = -1.0) Low bone mass (T-score between -1.0 and -2.5) replaces thepreviously used term osteopenia Osteoporosis (T-score = or below -2.5) Medical evaluation for secondary causes of low bone mineral density may be appropriate. FRAX is a World Health Organization validated fracture risk assessmenttool that calculates a person's 10 year probability of a major osteoporosisrelated fracture and hip fracture. According to the National OsteoporosisFoundation guidelines, postmenopausal women and men age 50 or older with low bonemass and a 10 year probability of a major osteoporosis related fracture = or greater than 20% or a 10 year probability of a hip fracture = or greaterthan 3% should be considered for treatment. For further information, including treatment recommendations, please referto the 2019 ISCD Official Positions (http://www.iscd.org) and the NOF's Clinician's Guide to Prevention and Treatment of Osteoporosis (http://www.nof.org/professionals/clinical-guidelines) THIS IS AN ELECTRONICALLY VERIFIED FINAL REPORT 12/24/2022 8:00 PM - Electronically signed by Ibrahima Albert M.D. MF: ELIAN Report ID: [id number] Reading Location: [place] [address] us Salud Luna DO IMG DXA PROCEDURES Final R esult * Hepatitis C antibody (01/28/2018 8:53 AM CDT) Hep C Ab NON-REACTI VE NON-REACTI VE [facility] [place] SIGNAL TO CUT-OFF 0.01 <1.00 [facility] [place] 01/28/2018 8:53 AM CDT 01/28/2018 8:55 AM CDT Narrative [facility] - 01/29/2018 10:17 AM CDT FASTING:YES FASTING: YES Resulting Agency Comment Performing Organization Information: Site ID: [place] Name: [facility] Address: [address] [place] [id number] Director: Star Palma D.O., MPH us Sally Dockery MD LAB MICROBIOLOGY - GENERAL O RDERABLES Final Result [facility] [place] Arevalo * Colonoscopy (12/31/2010) Anatomical Region Laterality Modality Other us Historical Provider ENDOSCOPY PROCEDURES Gina l Result from Last 3 Months or Most Recently Relevant to Health Maintenance Insurance [facility] [place] [id number] Advance Directives For more information, please contact: [phone] * Full Code (Latest Code Status on File) Date Activated Date Inactivated Comments 10/09/2019 11:38 PM 10/10/2019 10:47 PM Care Teams Hall Manager Relationship Specialty Start Date End Date Italia Pierce MD [address] [place] [address] PCP - General Family Medicine 12/18/23 Alisa Jensen, ANAYELI Registered Nurse Pulmonary Disease 12/09/22 Lis Garcia MD [address] [place] [address] Consulting Physician Obstetrics and Gynecology 12/09/22 Yon Herrera DO [address] [place] [address] Consulting Physician Endocrinology Diabetes & Metabolism 05/04/24
--- OUTSIDE RECORDS SUMMARY | 2024-11-30 18:58 | XMS_ITS | Clinical Summary ---
Author Organization [facility] Address [address] [place] [address] Phone Care Team Providers Care Concrete Finisher Apprentice Name Role Phone Sally Dockery MD Primary Care Provider [phone] Social History Tobacco Use Types Packs/Day Years Used Date Smoking Tobacco: Never Assessed Comments No Sex and Gender Information Value Date Recorded Sex Assigned at Not on file Legal Sex Female 10:54 PM CDT Gender Identity Not on file Sexual Orientation Not on file Plan of Treatment Health Maintenance Due Date Last Done Comments Hepatitis C Virus (HCV) Screening 1950 TdaP Immunization 1950 Cologuard 1996 Colonoscopy 1996 Colorectal Cancer Screening 1996 Immunochemical Fecal Occult Blood 1996 Zoster Immunization (1 of 2) 2001 Pneumococcal Immunization (5 0+ years) (2 of 2 - PCV20 or PCV21) 12/12/2017 12/12/2016 SARS-COV-2 Immunization ( - season) 2023 Influenza Immunization (#1) 2024 12/12/2016 Respiratory Syncytial Virus (RSV) Immunization (Adult) (1 - 1-dose 75+ series) 2026 Mammogram Discontinued 11/01/2016, 08/30/2015 Pneumococcal Immunization Combined Discontinued 12/12/2016 Hepatitis B Immunization Aged Out No longer eligible based on patient's age to complete this topic Human Papillomavirus (HPV) Immunization Aged Out No longer eligible based on patient's age to complete this topic Meningococcal Immunization (ACWY) Aged Out No longer eligible based on patient's age to complete this topic Rotavirus Immunization Aged Out No lo nger eligible based on patient's age to complete this topic Procedures Procedure Name Priority Date/Time Associated Diagnosis Comments COURTNEY SCREENING BILATERAL DIGITAL W CAD Routine 11/01/2016 8:30 AM CDT Visit for screening mammogram from Last 3 Months or Most Recently Relevant to Health Maintenance Results * COURTNEY SCREENING BILATERAL DIGITAL W CAD (11/01/2016 8:30 AM CDT) Anatomical Region Laterality Modality breast Bilateral Mammography 11/01/2016 8:16 AM CDT Narrative 11/03/2016 3:32 PM CDT - COURTNEY SCREENING BILATERAL DIGITAL W CAD BILATERAL DIGITAL SCREENING MAMMOGRAM WITH CAD WITH MEDIOLATERAL OBLIQUE CRANIOCAUDAL: 11/01/2016 The study was acquired using digital technology and interpreted from soft copy. Current study was also evaluated with ICAD version 7.2. CLINICAL: Routine screening. Patient has no complaints. No personal history of cancer. No family history of breast cancer. COMPARISONS: Comparison is made to exams dated: 09/20/2015, 08/30/2015, 06/15/2014, 05/12/2013, 04/12/2012, and 04/10/2012 [facility]. BREAST TISSUE:The tissue of both breasts is heterogeneously dense. This may lower the sensitivity of mammography. FINDINGS: No significant masses, calcifications, or other findings are seen in either breast. There has been no significant interval change. IMPRESSION: BI-RAD 1 NEGATIVE There is no mammographic evidence of malignancy. A 1 year screening mammogram is recommended. The patient has been or will be contacted. The patient will be entered into a reminder system with a target due date of 1 year for her next screening exam. Electronically signed by: Sally vizcarra/harry:11/03/2016 08:51:44 Business Process Architect: Dayanara Roque(Kyra), [facility] letter sent: Normal Exam Reading location: [facility] BI-RADS: 1 Negative Procedure Note Sally Ferguson MD - 11/03/2016 - COURTNEY SCREENING BILATERAL DIGITAL W CAD BILATERAL DIGITAL SCREENING MAMMOGRAM WITH CAD WITH MEDIOLATERAL OBLIQUE CRANIOCAUDAL: 11/01/2016 The study was acquired using digital technology and interpreted from soft copy. Current study was also evaluated with ICAD version 7.2. CLINICAL: Routine screening. Patient has no complaints. No personal history of cancer. No family history of breast cancer. COMPARISONS: Comparison is made to exams dated: 09/20/2015, 08/30/2015, 06/15/2014, 05/12/2013, 04/12/2012, and 04/10/2012 [facility]. BREAST TISSUE:The tissue of both breasts is heterogeneously dense. This may lower the sensitivity of mammography. FINDINGS: No significant masses, calcifications, or other findings are seen in either breast. There has been no significant interval change. IMPRESSION: BI-RAD 1 NEGATIVE There is no mammographic evidence of malignancy. A 1 year screening mammogram is recommended. The patient has been or will be contacted. The patient will be entered into a reminder system with a target due date of 1 year for her next screening exam. Electronically signed by: Sally Ferguson M.D. rb/harry:11/03/2016 08:51:44 Business Process Architect: Dayanara Roque(R), [facility] letter sent: Normal Exam Reading location: [facility] BI-RADS: 1 Negative us Sally Dockery MD IMG MAMMO ORDERABLES Final R esult from Last 3 Months or Most Recently Relevant to Health Maintenance Insurance MEDICARE C ESS[employer] Care Teams Concrete Finisher Apprentice Relationship Specialty Start Date End Date Sally Dockery MD [address] [facility] [address] [address] PCP - General 08/02/15
--- OUTSIDE RECORDS SUMMARY | 2024-11-30 18:58 | XMS_ITS | Clinical Summary ---
Author Organization [facility] Address [address] [address] [place] [address] Phone Care Team Providers Care Boiler Operator Helper Name Role Phone Unavailable Primary Care Provider Unavailabl e Social History Tobacco Use Types Packs/Day Years Used Date Smoking Tobacco: Never Assessed Comments Unknown Sex and Gender Information Value Date Recorded Sex Assigned at Not on file Legal Sex Female 3:21 PM RHEUMATOLOGY NURSE Gender Identity Not on file Sexual Orientation Not on file Plan of Treatment Health Maintenance Due Date Last Done Comments DTAP/TDAP/TD VACCINES (1 - Tdap) 1970 BREAST CANCER SCREENING 1991 COLORECTAL SCREENING 1996 Colorectal Cancer Screening 1996 FIT-DNA Q 3 years 1996 FIT/FOBT Q 1 year 1996 Flex Sig/CT Colonography Q 5 years 1996 PNEUMOCOCCAL VACCINE 50+ YEARS (1 of 1 - PCV) 03/15/20 01 ZOSTER VACCINE (1 of 2) 2001 OSTEOPOROSIS SCREENING 2016 INFLUENZA VACCINE (#1) 2024 RSV VACCINE (60+ or ) (1 - 1-dose 75+ series) 2026 Insurance [facility] MCR
--- NOTE | 2024-11-30 20:00 | ECG_ITS ---
Test Date: 2024-11-30 19:18:49 Measurements Intervals [place] Rate: 85 P: 37 [place]: 179 QRS: 19 QRSD: 90 T: 19 QT: 357 QTc: 427 Interpretive Statements SINUS RHYTHM CONSIDER INFERIOR INFARCT, AGE INDETERMINATE ABNORMAL ECG No previous ECG available for comparison Electronically Signed On 11-30-2024 21:25:24 CDT by Parish Encarnacion D.O.
[2024-11-30 20:26] LABS: Hematocrit 44.9 % (37.0-47.0); Hemoglobin 14.4 g/dL (12.0-15.0); Immature Granulocyte Percent A 0.3 % (0-0.5); Lymphocytes Absolute Auto 1.33 K/mm3 (0.9-3.2); Mean Corpuscular HGB Conc 32.1 g/dl (32-36); Mean Corpuscular Hemoglobin 29.5 pg (26-34); Mean Corpuscular Volume 92.0 fl (80-100); Nucleated Red Blood Cells Absolute Auto 0.000 K/mm3 (0.0-0.012); Nucleated Red Blood Cells Perc 0.0 % (0.0-0.2); Platelet Count Result 285 k/mm3 (150-375); Red Blood Count 4.88 M/mm3 (4.2-5.4); White Blood Count 9.1 K/mm3 (4.5-10.0)
[2024-11-30 20:36] LABS: Alanine Aminotransferase 21 U/L (6-35); Albumin Level 4.7 g/dL (3.5-5.1); Alkaline Phosphatase 96 U/L (38-126); Anion Gap 10 mmol/L (4-12); Aspartate Amino Transferase 33 U/L (14-36); Bilirubin,Total 0.5 mg/dL (0.2-1.3); Blood Urea Nitrogen 17 mg/dL (7-17); Calcium 9.5 mg/dL (8.4-10.2); Carbon Dioxide 25 mmol/L (22-30); Chloride 103 mmol/L (98-107); Estimated Glomerular Filt Rate 54; Glucose 108 mg/dL (65-110); Magnesium 2.5 mg/dL (1.6-2.3); Potassium 4.2 mmol/L (3.4-5.0); Sodium 138 mmol/L (137-145); Total Protein 8.8 g/dL (6.3-8.2)
[2024-11-30 20:40] LABS: INR 1.0; Partial Thromboplastin Time 24.6 Seconds (22.3-36.8); Prothrombin Time 13.0 Seconds (11.1-14.7)
[2024-11-30 20:57] VITALS: BP 141/71; PULSE 87; PULSE 88; RESP 19; O2SAT 97
--- NOTE | 2024-11-30 21:15 | ED.DIZZY ---
HPI - Dizziness General Chief Complaint: Syncope Stated Complaint: SYNCOPAL EPISODE AT A SOCCER GAME Time Seen by Provider: 11/30/24 21:09 History of Present Illness HPI Narrative: Patient is a 71-year-old female who presents to the emergency department this evening complaining of a near syncopal episode. Patient states that she was out with her family at a soccer game and states that she does get these episodes where if she gets too hot she will get dizzy and she will note that she is about to pass out and she sits. Patient states that she was starting to fall but her son caught her. Otherwise patient states that she feels fine, denies any additional symptoms or concerns at this time. Related Data Allergies Allergy/AdvReac Type Severity Reaction Status Date / Time Sulfa (Sulfonamide Allergy Unknown unknown Unverified 11/30/24 18:59 Antibiotics) Review of Systems Review of Systems: All systems are reviewed and are negative unless stated otherwise in the HPI. Exam Narrative: General: Alert, awake, afebrile, in no acute distress. HEENT: PERRL, no rhinorrhea, no post nasal drip, oropharynx clear. Neck: Trachea midline, no JVD, no lymphadenopathy. Cardiovascular: Regular rate and rhythm, no murmurs, rubs or gallops, no peripheral edema. Respiratory: Clear to auscultation bilaterally, no tachypnea, no wheezing, no rhonchi, no rubs, no respiratory distress. Abdomen: Soft, nontender, nondistended, no rebound, no guarding, no peritoneal signs. Musculoskeletal: No joint swelling or deformity, normal muscle tone. Skin: No rashes or petechia, no signs of infection. Psychiatric: Alert and oriented, normal behavior and judgment for situation. Neurological: Alert and oriented to person, place, and time. Follows all commands. No focal deficits, speech is clear and fluent. Course Vital Signs Vital signs: Vital Signs Temperature 97.8 F 11/30/24 18:57 Pulse Rate 93 11/30/24 18:57 Respiratory Rate 16 11/30/24 18:57 Blood Pressure 152/76 H 11/30/24 18:57 Pulse Oximetry 97 11/30/24 18:57 Temperature 97.8 F 11/30/24 18:57 Pulse Rate 88 11/30/24 20:57 Respiratory Rate 19 11/30/24 20:57 Blood Pressure 141/71 H 11/30/24 20:57 Pulse Oximetry 97 11/30/24 20:57 MDM - Dizziness MDM Narrative Medical decision making narrative: The patient was evaluated by myself in the emergency department. History is obtained from patient who is an independent historian and physical exam was performed. External medical records were reviewed at this time. IV was established and pertinent tests were ordered. EKG was obtained which revealed sinus rhythm rate of 85 beats per minute, no evidence of acute ischemia. EKG was independently interpreted by me and is currently pending official cardiology read. Laboratory results obtained revealing no acute process. Imaging studies obtained included CXR which was independently interpreted by me revealing no acute process, which is pending final radiology interpretation. CT brain without IV contrast was also obtained at this time and blood interpreted by me revealing no acute intracranial process. Differential diagnosis considerations include dehydration, electrolyte derangements, acute viral syndrome, vasovagal episode. Comorbidities impacting this visit include none. I have evaluated and discussed social determinants of health with the patient that could potentially impact subsequent diagnosis and treatment plans. On repeat assessment of the patient, reevaluation revealed that the patient is doing well and is in no acute distress. Patient symptoms have improved since she arrived to our emergency department. Repeat vital signs were all reviewed and noted to be stable. Differential diagnosis and treatment plan were discussed with the patient at bedside. Patient agrees with discussion and after shared medical decision making agrees with discharge. All questions were answered to the patient's satisfaction. Patient will follow up with PCP in 3-5 days. Patient was provided with strict return precautions and instructed to return to the emergency department if any new or worsening symptoms develop. The patient was discharged in stable condition. Lab Data 11/30/24 20:18 11/30/24 20:18 Labs: Lab Results 11/30/24 Range/Units 20:18 WBC 9.1 (4.5-10.0) K/mm3 RBC 4.88 (4.2-5.4) M/mm3 Hgb 14.4 (12.0-15.0) g/dL Hct 44.9 (37.0-47.0) % MCV 92.0 (80-100) fl MCH 29.5 (26-34) pg MCHC 32.1 (32-36) g/dl RDW 14.2 (11.5-14.5) % Plt Count 285 (150-375) k/mm3 MPV 9.2 (7.4-10.4) fl Immature Gran % (Auto) 0.3 (0-0.5) % Neut % (Auto) 73.9 H (45.5-73.1) % Lymph % (Auto) 14.7 L (18.3-44.2) % [place] % (Auto) 7.8 (2.6-8.5) % Eos % (Auto) 2.6 (0-4.4) % Baso % (Auto) 0.7 (0.2-1.2) % Lymph # (Auto) 1.33 (0.9-3.2) K/mm3 [place] # (Auto) 0.7 H (0.1-0.6) K/mm3 Eos # (Auto) 0.2 (0-0.3) K/mm3 Baso # (Auto) 0.1 (0.0-0.1) K/mm3 Abs Immat Gran (auto) 0.03 (0.00-0.031) K/mm3 Absolute Neuts (auto) 6.7 (1.3-6.7) K/mm3 Absolute Nucleated RBC 0.000 (0.0-0.012) K/mm3 Nucleated RBC % 0.0 (0.0-0.2) % PT 13.0 (11.1-14.7) Seconds INR 1.0 APTT 24.6 (22.3-36.8) Seconds Sodium 138 (137-145) mmol/L Potassium 4.2 (3.4-5.0) mmol/L Chloride 103 (98-107) mmol/L Carbon Dioxide 25 (22-30) mmol/L Anion Gap 10 (4-12) mmol/L BUN 17 (7-17) mg/dL Creatinine 1.00 (0.7-1.0) mg/dL Estim Creat Clear Calc Not Reportable Estimated GFR 54 L (59 - ) Glucose 108 (65-110) mg/dL Calcium 9.5 (8.4-10.2) mg/dL Magnesium 2.5 H (1.6-2.3) mg/dL Total Bilirubin 0.5 (0.2-1.3) mg/dL AST 33 (14-36) U/L ALT 21 (6-35) U/L Alkaline Phosphatase 96 (38-126) U/L Total Protein 8.8 H (6.3-8.2) g/dL Albumin 4.7 (3.5-5.1) g/dL Discharge Plan Discharge Clinical Impression: Near syncope Patient Disposition: Home Condition: Improved Instructions: Antibiotic Form, Near Syncope (ED) Additional Instructions: Please follow-up with your family doctor within the next 3-5 days. Return emergency department for new or worsening symptoms develop. Patient Language: Tongan Follow-up/Referrals: UNKNOWN,DOCTOR [Primary Care Provider] Time of Disposition: 21:15
--- OUTSIDE RECORDS SUMMARY | 2024-11-30 21:30 | XMS_ITS | Clinical Summary ---
Author Organization [facility] Address [address] [place] [address] Phone Care Team Providers Care Distribution Sales Representative Name Role Phone Alisa Jensen METALIZER Unavailable [phone] Lis Garcia MD Unavailable [phone] Italia Pierce MD Primary Care Provide r Yon Herrera DO Unavailable Allergies Active Allergy Reactions Criticality Noted Date [...] a day 60 tablet 3 Active rizatriptan AQUACULTURE AND FISHERIES PROFESSOR (MAXALT-AQUACULTURE AND FISHERIES PROFESSOR) 10 mg disintegrating tabletIndications :Migraine Take 1 [...] weeks. Assessment & Plan (05/05/2024 7:12 AM MERCHANDISING SPECIALIST): Right-sided headaches and vision changes with an elevated CRP. Started on steroids by her PCP. Risks benefits alternatives to right temporal artery biopsy were discussed, she wished proceed. Migraine 04/26/2024 Assessment & Plan (04/26/2024 4:42 PM MERCHANDISING SPECIALIST): Ocular migraine with new changes Will get [...] 05/14/2023 Assessment & Plan (05/14/2023 10:33 AM MERCHANDISING SPECIALIST): Rxs given, if no improvement, simon ov for further eval/mgmt. Go to nearest ER for any worrisome S/Sxs. Acute pain of right shoulder 03/17/2023 Assessment & Plan (03/17/2023 9:07 PM MERCHANDISING SPECIALIST): Xrays ordered, trial of oral steroids. Continue heat/ice 20 mins/hr. Consider PT. May take OTC NSAIDs and/or Tylenol. Notify our office of no improvement. Mammogram declined 03/17/2023 Colonoscopy refused 03/17/2023 Chronic fatigue 06/10/2022 Assessment & Plan (07/21/2024 11:12 AM CDT): Likely chronic fatigue syndrome The patient said that she was tested by mosaic floor layer for sleep apnea and no CPAP machine was recommended. Work up this far unremarkable and even saw endo in the past for this Ordered B12 vitamin d iron panel urinalysis Encourage exercise and diet F/u pending above results Assessment & Plan (06/10/2022 1:29 PM MERCHANDISING SPECIALIST): The patient said that she was tested by mosaic floor layer for sleep apnea and no CPAP machine [...] office. Assessment & Plan (03/10/2022 3:59 PM MERCHANDISING SPECIALIST): Pap done secondary to her h/o the [...] diet. Assessment & Plan (06/09/2023 2:14 PM MERCHANDISING SPECIALIST): Weight reduction, daily exercise and dietary modifications recommended., as obesity can complicate their hypertension. Assessment & Plan (05/14/2023 10:31 AM MERCHANDISING SPECIALIST): Weight reduction, daily exercise and dietary modifications [...] pulmonology. Assessment & Plan (06/09/2023 2:14 PM MERCHANDISING SPECIALIST): Currently asymptomatic, at baseline, continue current medications, [...] months Assessment & Plan (06/09/2023 2:13 PM MERCHANDISING SPECIALIST): Clinically resolved. BP goal < 140/90. Low sodium diet recommended. Assessment & Plan (05/14/2023 10:32 AM MERCHANDISING SPECIALIST): BP near goal of < 140/90, low [...] range -encouraged patient to reach out to manager food for a follow up appointment -decrease Synthroid to 75 mcg daily -continue current treatment plan Assessment & Plan (10/23/2023 6:39 AM CDT): Lab Results Component Value Date TSH 0.14 (L) 10/17/2023 -chronic, not at goal -patient currently takes Synthroid 100 mcg daily -follows with endocrinology -most recent TSH performed with ER visit, abnormal results -encouraged patient to reach out to manager food about potential change in medication dosage -continue current treatment plan Assessment & Plan (06/09/2023 2:13 PM MERCHANDISING SPECIALIST): Asymptomatic. Stable. Continue current prescription medications, levothyroxine. Hypothyroidism followed by endocrinology. Assessment & Plan (05/28/2023 11:44 AM MERCHANDISING SPECIALIST): Chronic, well controlled Continue Synthroid, 100 mcg [...] resolved Assessment & Plan (03/10/2022 4:00 PM MERCHANDISING SPECIALIST): She will treat with the aveno. If not better in a month, to come back. Eye exam abnormal 05/08/2021 12/09/2022 Gastroesophageal reflux disease 08/20/2013 06/09/2023 Overview (06/09/2023): Resolved Assessment & Plan (12/09/2022 11:03 AM CDT): Asymptomatic, patient made dietary changes to help with symptoms. Hypothyroidism 08/20/2013 12/09/2022 Overview (07/10/2016): HYPOTHYROIDISM NOS Assessment & Plan (06/10/2022 1:28 PM MERCHANDISING SPECIALIST): I explained to the patient that probably her fatigue is not related to her hypothyroidism, Since the Cytomel has not made any difference recommended to stop it and to go back to 100 mcg of Synthroid daily Hypertension 07/22/2012 05/08/2021 Overview (07/10/2016): Hypertension Asthma 07/22/2012 12/09/2022 Overview (07/10/2016): Asthma Encounters Date Type Department Care Team Description 11/03/2024 1:00 PM CDT Office Visit [facility] [address] [place] [address] Ibrahima Hernandez MD Chronic migraine without aura without status migrainosus, not intractable 11/01/2024 Orders Only [facility] [address] [place] [phone] Toña Gonzalez MD 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); Disorder of breast, unspecified 10/28/[address] [address]Latosha Murphy RN 10/26/2024 Results Follow-Up [address] [place] [address] Lis Garcia MD Surgical pathology 10/24/2024 8:23 AM CDT - 10/24/2024 11:59 PM CDT Hospital Encounter [facility] [address] [place] [address] 1, Amh Rad Rn Rad, Amh Breast Abnormal mammogram Discharge Disposition: Discharge to home or self care 10/21/[address] [place] [address] Lis Garcia MD auth for breast biopsy 10/20/[address] [phone] Murphy RN 10/05/[address] [address]Latosha Murphy RN 09/07/[address] [address]Latosha Murphy RN 09/01/2024 7:50 AM CDT - 09/01/2024 11:59 PM CDT Hospital Encounter [facility] [address] [place] [address] Abnormal mammogram Discharge Disposition: Discharge to home or self care 09/01/2024 7:50 AM CDT - 09/01/2024 11:59 PM CDT Hospital Encounter [facility] [address] [place] [address] Abnormal mammogram Discharge Disposition: Discharge to home or self care 09/01/2024 Results Follow-Up [facility] [place] [address] [place] [phone] Italia Pierce MD Diagnostic Mammogram Left W [...] OTHER SURGICAL HISTORY T&A SECTION c section [id number] TUBAL LIGATION 04/06/1975 - 04/05/1976 Bilateral tubal [...] Procedure: RIGHT TEMPORAL ARTERY BIOPSY; Surgeon: Kd tSanton MD; Location: [facility]; Service: Vascular; Laterality: Right; SECTION 1969 and 1974 BREAST BIOPSY 10/24/2024 Left Medical History Medical History Date Comments Hx Other Medical 01-MICROPALEONTOLOGIST Hx Other Medical 02-GI Hx Other Medical [...] Jayme fatty liver Brother 2 Jayme in fpc Alcohol abuse Father Jung Arthritis Father Jung [...] Neg Hx no colon, breas t or coal drier operator cancer no change cmt 07/25/24 Relation Name [...] AM CDT Legal Sex Female 2:17 PM MERCHANDISING SPECIALIST Gender Identity Female 07/25/2020 9:30 AM CDT Sexual Orientation Straight 06/29/2018 9: 49 AM CDT Occupation Industry Job Start Date Job End Date [employer] [employer]. Retiring 06/2018 Not on file Not on [...] Completed 12/21/2023 Medical Devices Implanted Type Area Music Therapist Device Identifier Shelf Expiration Date Model / Serial / Lot [employer] Marker Tissue Bowtie Shape Titanium Collagen Mammomark 10ga [id number] - [id number] - [id number] Implanted:Qty : 1 on 10/24/2024 by David Purcell MD at [facility] Breast Left: Breast [employer] [id number] 10/17/2025 [id number] / [id number] / [id number] D Description:Stereotactic lef t breast biopsy. 2-3:00 [...] 3, 4, 5, & 6. Narrative PATHOLOGY [facility] - 10/26/2024 4:42 PM CDT EPIC results best viewed via link to PDF [facility] Department of Pathology [address] [place] [address] Note to Patients: This report may contain [...] Report Patient Name: NORY DOVE Address: [address] , [place] [address] Gender: F : 1950 (Age: 74) Service: Location: N : [id number] Hospital #: [id number] Patient Type: [facility] ANCILLARY Taken: 10/24/2024 Received: 10/24/2024 Accessioned: [...] are performed (with appropriate controls) on a electronics parts sales representative block. The myoepithelial marker SMM-HWC strongly [...] determined by the Surgical Pathology Department at [facility] as part of an ongoing quality assurance tester program and in compliance with federally mandated [...] characteristics determined by the Surgical Pathology Department [facility]. It has not been cleared or approved by the U. S. Food and Drug Administration. Note for decalcified specimens: This assay has not been validated on decalcified tissues. Results should be interpreted with caution given the possibility of false negativity on decalcified specimens Lis Garcia MD LAB PATHOLOGY ORDER AMAURY Final Result PATHOLOGY [facility] [address] [place] [address] * US Breast Left Limited (09/01/2024 8:51 [...] no other suspicious interval change. us Lis Gracia MD IMG MAMMO PROCEDURE S Final Result [...] of: screening osteoporosis Osteoporosis screening Post menopausal Music Therapist/Model: [employer] SL ([id number]/N [id number]) CLINICAL INFORMATION: Current height: 57 inches Maximum [...] Ibrahima Albert M.D. MF: ELIAN Report ID: [id number] Reading Location: [place] [address] Procedure Note Ibrahima Albert MD - 12/24/2022 EXAM DESCRIPTION: DEXA AXIAL SKELETON BONE DENSITY 1 OR MORE SITES REASON FOR STUDY: 72 y/o year old F with given history of: screening osteoporosis Osteoporosis screening Post menopausal Music Therapist/Model: [place] [employer] SL (S/N [id number]) CLINICAL INFORMATION: Current height: 57 inches Maximum [...] Ibrahima Albert M.D. MF: ELIAN Report ID: [id number] Reading Location: [place] [address] us Salud Luna DO IMG DXA PROCEDURES Final R esult * Hepatitis C antibody (01/28/2018 8:53 AM CDT) Hep C Ab NON-REACTI VE NON-REACTI VE [facility] [place] SIGNAL TO CUT-OFF 0.01 <1.00 [facility] [place] 01/28/2018 8:53 AM CDT 01/28/2018 8:55 AM CDT Narrative [facility] - 01/29/2018 10:17 AM CDT FASTING:YES FASTING: YES Resulting Agency Comment Performing Organization Information: Site ID: [place] Name: [facility] Address: [address] [address] Director: Star Palma D.O., MPH us Sally Dockery MD LAB MICROBIOLOGY - GENERAL O RDERABLES Final Result [facility] [place] Arevalo * Colonoscopy (12/31/2010) Anatomical Region Laterality Modality Other us Historical Provider ENDOSCOPY PROCEDURES Gina l Result from Last 3 Months or Most Recently Relevant to Health Maintenance Insurance [facility] [place] [id number] Advance Directives For more information, please contact: [phone] * Full Code (Latest Code Status on File) Date Activated Date Inactivated Comments 10/09/2019 11:38 PM 10/10/2019 10:47 PM Care Teams Distribution Sales Representative Relationship Specialty Start Date End Date Italia Pierce MD [address] [place] [address] PCP - General Family Medicine 12/18/23 Alisa Jensen, ANAYELI Registered Nurse Pulmonary Disease 12/09/22 Lis Garcia MD [address] [place] [address] Consulting Physician Obstetrics and Gynecology 12/09/22 Yon Herrera DO [address] [place] [address] Consulting Physician Endocrinology Diabetes & Metabolism 05/04/24
--- OUTSIDE RECORDS SUMMARY | 2024-11-30 21:30 | XMS_ITS | Clinical Summary ---
Author Organization [facility] Address [address] [place] [address] Phone Care Team Providers Care Client Support Associate Name Role Phone Sally Dockery MD Primary Care Provider [phone] Social History Tobacco Use Types Packs/Day Years [...] 08/30/2015, 06/15/2014, 05/12/2013, 04/12/2012, and 04/10/2012 [facility]. BREAST TISSUE:The tissue of both [...] exam. Electronically signed by: Sally vizcarra/harry:11/03/2016 08:51:44 Computer Repairer: Dayanara Roque(Kyra), [facility] letter sent: Normal Exam Reading location: [facility] BI-RADS: 1 Negative Procedure Note Sally Ferguson [...] 08/30/2015, 06/15/2014, 05/12/2013, 04/12/2012, and 04/10/2012 [facility]. BREAST TISSUE:The tissue of both [...] signed by: Sally Ferguson M.D. rb/harry:11/03/2016 08:51:44 Computer Repairer: Dayanara Roque(R), [facility] letter sent: Normal Exam Reading location: [facility] BI-RADS: 1 Negative us Sally Dockery MD IMG MAMMO ORDERABLES Final R esult from Last 3 Months or Most Recently Relevant to Health Maintenance Insurance MEDICARE C [employer] Care Teams Client Support Associate Relationship Specialty Start Date End Date Sally Dockery MD [address], [place] [address] PCP - General 08/02/15
--- OUTSIDE RECORDS SUMMARY | 2024-11-30 21:31 | XMS_ITS | Clinical Summary ---
Author Organization [facility] Address [address] [place] [id number] Care Team Providers Care Tool Design Checker Name Role Phone Unavailable Primary Care Provider [...]
[2024-11-30 21:46] VITALS: BP 128/71; PULSE 85; RESP 18; O2SAT 97
== END 2024-11-30 21:48 | disposition home or self-care (01) ==
LOC: ANHED 21:28
PROVIDERS: Emergency Provider Emergency Medicine
DX: R55 Syncope and collapse (principal); R94.31 Abnormal electrocardiogram [ECG] [EKG]
CPT/HCPCS: 36415; 70450; 71045; 80053; 83735; 85025; 85610; 85730; 93005; 99284